=== PATIENT | female | born 1945 | race Caucasian/White ===

== ENCOUNTER 2023-08-25 10:32 | Emergency (ER) | payer OTHER, MEDICAID ==
[~2023-08-25] VITALS: Ht 160 cm; Wt 86.2 kg
[~2023-08-25 10:32] MED LIST: DILT300C26 PO; LANS30CA53 PO; LIP20 PO; LORA-259 PO; METO-442 PO; NAPR250T PO; VALS320T2 PO
[2023-08-25 10:38] VITALS: BP_SYST 150; PULSE 92; RESP 22; TEMP 98.3; O2SAT 98
[2023-08-25] MEDS ORDERED: LORazepam 1 MG TABLET PO ONE (10:45)
[2023-08-25] MEDS ORDERED: KETOROLAC TROMETHAMINE 30 MG VIAL IM ONE (10:45)
[2023-08-25] MEDS ORDERED: BUTA1CAP43 PO (12:03)
[2023-08-25 12:17] VITALS: BP_SYST 150; PULSE 92; RESP 22; TEMP 98.3; O2SAT 98
== END 2023-08-25 12:13 | disposition home or self-care (01) ==
LOC: SED 10:32
DX: R06.4 Hyperventilation (principal); F41.9 Anxiety disorder, unspecified; I10 Essential (primary) hypertension; K21.9 Gastro-esophageal reflux disease without esophagitis; Z79.899 Other long term (current) drug therapy
CPT/HCPCS: 99283; 93005; 96372; J1885